=== PATIENT | female | born 1985 | race Caucasian/White ===

== ENCOUNTER → 2019-12-22 | Outpatient (CLI) | payer BC ==
[~2019-12-22] MED LIST: CITA20TA6 PO; NORE5TAB3 PO; OMEP20CA16 PO
== END | disposition home or self-care (01) ==
LOC: LAB 13:30
PROVIDERS: ATTEND Registered Nurse
DX: Z01.818 Encounter for other preprocedural examination (principal); Z11.59 Encounter for screening for other viral diseases; K21.9 Gastro-esophageal reflux disease without esophagitis
CPT/HCPCS: U0003-CS

== ENCOUNTER → 2019-12-26 | Day surgery (SDC) | payer BC ==
[~2019-12-26] MED LIST changes: +IPRATRPIUM/ALBUTEROL 0.5/2.5MG 3 ML NEBU. NEB PRN; +IV RINGERS SOLUTION,LACTATED 1,000 ML IV SCH; +MIDAZOLAM HCL PF 2 MG/2 ML VIAL. IV ONE; +PROPOFOL 10,000 MCG/ML (20ML) VIAL IV ONE
[2019-12-26 09:05] VITALS: BP 115/71
--- NOTE | 2019-12-27 14:11 | PATHOLOGY ---
[facility] Accession Number: [id number] . 01 Material submitted: . PART A: stomach - GASTRIC BX PART B: esophagus - DISTAL ESOPHAGUS. Modifiers: distal . 01 Clinical history: . A. GASTRITIS B. REFLUX . 02 Diagnosis: A. Gastric biopsies: - Mild reactive gastropathy. . B. Esophageal biopsy, distal esophagus: - Segment of squamous esophageal mucosa identified showing no significant pathologic abnormalities. (JPM:[place]; 12/27/2019) S 12/27/2019 0920 Local . 02 Comment: Sections of the gastric biopsy reveal segments of gastric antral mucosa showing congestion, mild foveolar hyperplasia, and focal slight chronic inflammation. A properly controlled immunoperoxidase stain for Helicobacter is negative for Helicobacter organisms. The findings are consistent with a mild reactive gastropathy. . Sections of the distal esophageal biopsy reveal a segment of squamous esophageal mucosa showing no significant pathologic abnormalities. There is no evidence of Boyd's change, dysplasia, or malignancy. (JPM:[place]; 12/27/2019) . Special stain performed: Immunoperoxidase stain for Helicobacter on A1 . 02 Electronically signed: . Franklyn Oliver MD, Pathologist NPI- [id number] . 01 Gross description: . A. The specimen is received in formalin, labeled "Jesus, Lorna, gastric BX" and consists of 2 fragments of pink-flaherty tissue measuring 0.3 x 0.2 cm and 0.5 x 0.3 cm which are entirely submitted in A1. . B. The specimen is received in formalin, labeled "Jesus, Lorna, distal esophagus" and consists of a translucent fragment of pink tissue measuring 0.6 x 0.2 cm which is entirely submitted in B1. (SDY; 12/26/2019) SYU/SYU 12/26/2019 1732 Local . 02 Pathologist provided ICD-10: K31.9 . 02 CPT . 304093, [id number], [id number] Specimen Comment: A courtesy copy of this report has been sent to [phone], [phone] Specimen Comment: [phone] Specimen Comment: Report sent to / DR BAKER Performed at: [address] [facility], [place] [id number] MD Jhonny Benton MD Phone: [phone] Performed at: [facility] [address] [place], [place] [id number] MD Franklyn Oliver MD Phone: [phone]
== END | disposition home or self-care (01) ==
LOC: SURG 06:57
PROVIDERS: ATTEND Emergency Medicine
DX: K21.9 Gastro-esophageal reflux disease without esophagitis (principal); K31.89 Other diseases of stomach and duodenum; K22.8 Other specified diseases of esophagus; K29.70 Gastritis, unspecified, without bleeding; Z79.899 Other long term (current) drug therapy; Z98.890 Other specified postprocedural states; Z91.048 Other nonmedicinal substance allergy status
CPT/HCPCS: 43239; 88305; 88342; J2704; J7120; 43450